=== PATIENT | female | born 1990 | race Caucasian/White ===

== ENCOUNTER 2019-01-18 01:13 | Outpatient (CLI) | payer OTHER ==
[~2019-01-18] VITALS: Ht 152.4 cm; Wt 79.5 kg
[~2019-01-18 01:13] MED LIST: PREN1TAB49 PO
[2019-01-18 01:46] VITALS: BP 127/72; PULSE 84; RESP 18
[2019-01-18] MEDS ORDERED: CALC600T24 PO (02:02)
[2019-01-18] MEDS ORDERED: FERR134T PO (02:02)
[2019-01-18] MEDS ORDERED: TERBUTALINE 1 ML ONE (02:28)
[2019-01-18] MEDS ORDERED: LACTATED RINGER'S 1,000 ML IV SCH (02:30)
[2019-01-18] MEDS ORDERED: TERBUTALINE 1 MG/ML INJ SC ONE (02:30)
[2019-01-18] MEDS ORDERED: LACTATED RINGER'S 1,000 ML IV ONE (02:30)
--- NOTE | 2019-01-18 06:26 | TRIAGE ---
OB Triage Datetime Report Generated by CPN: 01/18/2019 06:25 Datetime: 01/18/2019 05:09 Stage of : OB Triage Labor Evaluation Monitor Mode: External Quality: Mild Pattern: Normal: <= 5 Contractions in 10 Minutes Resting Tone [place]: Relaxed Heart Rate FHR Baseline Rate: 130 Monitor Mode: External US FHR Baseline Changes: No Baseline Change Variability: Moderate 6-25 bpm Accelerations: 15X15 Decelerations: None Category: Category I Datetime: 01/18/2019 04:01 Labor Evaluation Monitor Mode: External Quality: Mild Pattern: Normal: <= 5 Contractions in 10 Minutes Resting Tone [place]: Relaxed Monitor Mode: External US FHR Baseline Changes: No Baseline Change Variability: Moderate 6-25 bpm Accelerations: 15X15 Decelerations: None Category: Category I Datetime: 01/18/2019 03:11 Labor Evaluation Monitor Mode: External Quality: Mild Pattern: Normal: <= 5 Contractions in 10 Minutes Resting Tone [place]: Relaxed Heart Rate FHR Baseline Rate: 145 Monitor Mode: External US FHR Baseline Changes: No Baseline Change Variability: Moderate 6-25 bpm Accelerations: 15X15 Decelerations: None Category: Category I Pain Assessment Pain Scale: 2 Pain Presence: Intermittent Pain Type: Cramping Pain Location: Abdomen Datetime: 01/18/2019 02:49 Stage of : Antepartum Labor Evaluation Monitor Mode: External Quality: Mild Pattern: Normal: <= 5 Contractions in 10 Minutes Resting Tone [place]: Relaxed Heart Rate FHR Baseline Rate: 130 Monitor Mode: External US FHR Baseline Changes: No Baseline Change Variability: Moderate 6-25 bpm Accelerations: 15X15 Decelerations: None Category: Category I Membrane Status: Intact Datetime: 01/18/2019 02:20 Stage of : OB Triage Datetime: 01/18/2019 02:17 Stage of : OB Triage Labor Evaluation Monitor Mode: External Quality: Mild Pattern: Normal: <= 5 Contractions in 10 Minutes Resting Tone [place]: Relaxed Heart Rate FHR Baseline Rate: 130 Monitor Mode: External US FHR Baseline Changes: No Baseline Change Variability: Moderate 6-25 bpm Accelerations: 15X15 Decelerations: None Category: Category I Vaginal Exam Dilatation (cms): 1.0 Effacement (%): 60 Station: -3 Exam By: Bacilio Matamoros Membrane Status: Intact Vaginal Bleeding: None Cervix, Consistency: Moderate Cervix, Position: Midposition Datetime: 01/18/2019 01:40 Time of Arrival: 01/18/2019 01:17 EGA: 35.5 Arrived By: Wheelchair Arrived From: Home Chief Complaint: c/o vag pressure and RLQ pain beg 1100 Movement: Present Contractions: Occasional Rupture of Membranes: Denies Vaginal Bleeding: None Vaginal Discharge: Present Recent Sexual Intercouse: Denies Abdominal Trauma: Not Applicable Patient Complaints: None Time Provider Notified: 01/18/2019 02:20 Provider Notified: Dr [place] Initial Plan: EFM,UA,SVE (Annotations: Data stored by CPN on behalf of user) Datetime: 01/18/2019 01:36 Stage of : OB Triage Maternal Assessment Level of Consciousness: Fully Conscious Headache: Denies Blurred Vision: No Nausea/Vomiting: Denies RUQ Epigastric Pain: Denies Facial Edema: None Labor Evaluation Monitor Mode: External Quality: Mild Resting Tone [place]: Relaxed Heart Rate FHR Baseline Rate: 130 Monitor Mode: External US
--- NOTE | 2019-01-18 08:55 | PN ---
Triage Information Date/Time January 18, 2019 Reason for visit: Right lower quadrant pain Weeks of Gestation 35 weeks and 5 days /Para 5 para 2 Diabetes: none Hypertention: none Additional information 28-year-old G5, P2 with IUP at 35 weeks and 5 days presented with complaint of vaginal pressure and pain in the right lower quadrant and contractions. She denies any leaking of fluid, vaginal bleeding or decreased movement. Objective Vital Signs Date Temp Pulse Resp B/P (MAP) Pulse Ox O2 O2 Flow FiO2 Time Delivery Rate 01/18/19 98.2 84 18 127/72 01:46 (90) Intake and Output 01/17/19 01/17/19 01/18/19 1515:00 23:00 07:00 IntakeIntake Total 1000 ml BalanceBalance 1000 ml Heart Rate: 130's Heart Rate Comments heart rate category 1 Contractions: 6-10 Minutes Apart Exam General appearance: Alert and oriented x4 does not appear to be in any acute distress Abdomen: Soft, gravid, fundal height consider gestational age Tenderness in suprapubic area noted NST: Category 1 UA consistent with UTI VS - Last 72 Hours, by Label Date Temp Pulse Resp B/P (MAP) Pulse Ox O2 O2 Flow FiO2 Time Delivery Rate 01/18/19 98.2 84 18 127/72 01:46 (90) Laboratory Tests Test 01/18/19 01:30 01/18/19 03:00 Urine Color STRAW Urine Clarity SLIGHTLY CLOUDY A Urine pH 6.0 Urine Specific [place] 1.008 Urine Ketones TRACE A Urine Nitrite NEGATIVE Urine Bilirubin NEGATIVE Urine Urobilinogen NEGATIVE Urine Leukocyte Esterase 3+ H Urine Microscopic RBC 6 H Urine Microscopic WBC 38 H Urine Squamous Epithelial Cells MODERATE Urine Bacteria FEW A Urine Mucus FEW A Urine Hemoglobin NEGATIVE Urine Glucose NEGATIVE Urine Total Protein NEGATIVE White Blood Count 8.5 Red Blood Count 4.06 L Hemoglobin 10.9 L Hematocrit 34.3 L Mean Corpuscular Volume 84.5 Mean Corpuscular Hemoglobin 26.8 L Mean Corpuscular Hemoglobin Concent 31.8 L Red Cell Distribution Width 12.8 Platelet Count 330 Mean Platelet Volume 10.1 Immature Granulocytes % 0.200 Neutrophils % 60.4 Lymphocytes % 30.8 Monocytes % 6.5 Eosinophils % 1.5 Basophils % 0.6 Nucleated Red Blood Cells % 0.0 Immature Granulocytes # 0.020 Neutrophils # 5.1 Lymphocytes # 2.6 Monocytes # 0.6 Eosinophils # 0.1 Basophils # 0.1 Nucleated Red Blood Cells # 0.0 Sodium Level 140 Potassium Level 3.7 Chloride Level 111 H Carbon Dioxide Level 21 Anion Gap 8 Blood Urea Nitrogen 5 L Creatinine 0.42 L Est Glomerular Filtrat Rate mL/min > 60 Glucose Level 91 Calcium Level 9.4 Total Bilirubin 0.5 Direct Bilirubin 0.00 Indirect Bilirubin 0.5 Aspartate Amino Transf (AST/SGOT) 18 Alanine Aminotransferase (ALT/SGPT) 16 Alkaline Phosphatase 198 H Total Protein 6.5 Albumin 3.4 Globulin 3.10 Albumin/Globulin Ratio 1.09 Results/Medications Result Diagram: 01/18/19 0300 01/18/19 0300 Results 24 hrs Laboratory Tests Test 01/18/19 01:30 01/18/19 03:00 Urine Color STRAW Urine Clarity SLIGHTLY CLOUDY A Urine pH 6.0 Urine Specific [place] 1.008 Urine Ketones TRACE A Urine Nitrite NEGATIVE Urine Bilirubin NEGATIVE Urine Urobilinogen NEGATIVE Urine Leukocyte Esterase 3+ H Urine Microscopic RBC 6 H Urine Microscopic WBC 38 H Urine Squamous Epithelial Cells MODERATE Urine Bacteria FEW A Urine Mucus FEW A Urine Hemoglobin NEGATIVE Urine Glucose NEGATIVE Urine Total Protein NEGATIVE White Blood Count 8.5 Red Blood Count 4.06 L Hemoglobin 10.9 L Hematocrit 34.3 L Mean Corpuscular Volume 84.5 Mean Corpuscular Hemoglobin 26.8 L Mean Corpuscular Hemoglobin Concent 31.8 L Red Cell Distribution Width 12.8 Platelet Count 330 Mean Platelet Volume 10.1 Immature Granulocytes % 0.200 Neutrophils % 60.4 Lymphocytes % 30.8 Monocytes % 6.5 Eosinophils % 1.5 Basophils % 0.6 Nucleated Red Blood Cells % 0.0 Immature Granulocytes # 0.020 Neutrophils # 5.1 Lymphocytes # 2.6 Monocytes # 0.6 Eosinophils # 0.1 Basophils # 0.1 Nucleated Red Blood Cells # 0.0 Sodium Level 140 Potassium Level 3.7 Chloride Level 111 H Carbon Dioxide Level 21 Anion Gap 8 Blood Urea Nitrogen 5 L Creatinine 0.42 L Est Glomerular Filtrat Rate mL/min > 60 Glucose Level 91 Calcium Level 9.4 Total Bilirubin 0.5 Direct Bilirubin 0.00 Indirect Bilirubin 0.5 Aspartate Amino Transf (AST/SGOT) 18 Alanine Aminotransferase (ALT/SGPT) 16 Alkaline Phosphatase 198 H Total Protein 6.5 Albumin 3.4 Globulin 3.10 Albumin/Globulin Ratio 1.09 Imaging Results PROCEDURE: US OB biophysical profile. CLINICAL INDICATION: Contractions TECHNIQUE: Multiple sonographic images of the pelvis were obtained. The i mages were reviewed on a PACS workstation. COMPARISON: None. FINDINGS: Single live intrauterine gestation. GRISELDA = 8.53 cm. Cardiac activity is present with 144 beats per minute. Cephalic presentation. Placental location is anterior. No evidence of previa or abruption. Biophysical profile as follows: movement 2/2 tone 2/2 breathing 2/2 GRISELDA 2/2 Total 04/26 IMPRESSION: Biophysical profile 04/26. RPTAT: HJBB Disposition: Discharge Assessment/Plan IUP at 35 weeks and 5 days Pelvic pain and pressure No evidence of labor or PPROM UTI Symptoms resolved after hydration Patient will be discharged home with instruction to take antibiotics and adequate p.o. hydration Rx for Keflex 500 mg p.o. 4 times daily prescribed Strict labor precautions kick count follow-up with primary OB office within 48 hours after discharge from the hospital discussed with the patient Patient verbalized understanding. All questions were answered to patient's best satisfaction TODD STAFFORD MD January 18, 2019 08:55
[2019-01-19] MEDS ORDERED: CEPH250S33 PO (20:47)
== END 2019-01-18 05:30 | disposition home or self-care (01) ==
LOC: L-D 01:13 → OBT 01:13
PROVIDERS: ATTEND Obstetrics & Gynecology
DX: O23.43 Unspecified infection of urinary tract in pregnancy, third trimester (principal); Z3A.35 35 weeks gestation of pregnancy
CPT/HCPCS: 36415; 76815; 76818; 80053; 81001; 85025; 96360; 96361; 96372; J3105; J7120; Z7500; G0463

== ENCOUNTER 2019-01-19 20:17 | Outpatient (CLI) | payer OTHER ==
[~2019-01-19] VITALS: Ht 152.4 cm; Wt 79.1 kg
[~2019-01-19 20:17] MED LIST changes: +CALC600T24 PO; +FERR134T PO
[2019-01-19 20:44] VITALS: BP 119/69; PULSE 88; RESP 18
[2019-01-19] MEDS ORDERED: CEPH250S33 PO (20:47)
--- NOTE | 2019-01-19 21:36 | PN ---
Triage Information Date/Time Reason for visit: Abd/pelvic pain (Pelvic pressure) Weeks of Gestation 28-year-old 5 para 2 at 35 weeks and 6 days of gestation with estimated date of delivery February 17, 2019 Patient presents with chief complaint of pelvic pressure and uterine contractions every 3 to 7 minutes with pain level of 3 out of 10 She reports positive movement, denies any vaginal bleeding or leaking fluid She is currently taking Keflex for urinary tract infection /Para 5 para 2 Diabetes: none Hypertention: none Objective Vital Signs Date Temp Pulse Resp B/P (MAP) Pulse Ox O2 O2 Flow FiO2 Time Delivery Rate 01/19/19 98.1 88 18 119/69 Room Air 20:44 (86) Heart Rate: 140's Heart Rate Comments heart rate tracing category 1 Contractions: 6-10 Minutes Apart Exam 1 cm/60%/-3 per nurse Results/Medications Imaging Results PROCEDURE: US OB biophysical profile. CLINICAL INDICATION: decreased movements, labor TECHNIQUE: Multiple sonographic images of the pelvis were obtained. The images were reviewed on a PACS workstation. COMPARISON: No prior studies are available for comparison. FINDINGS: There is a single live intrauterine gestation. Cardiac activity is present with 141 beats per minute. There is a vertex presentation. The placenta is anterior. There is no evidence of placental abruption. GRISELDA = 13.5 cm. Biophysical profile: movement 2/2 tone 2/2. breathing 2/2 GRISELDA 2/2 Total 04/26 RPTAT: AA . IMPRESSION: Normal biophysical profile. . .Chin Razo MD, MD Date Time Electronically viewed and signed by .Chin Razo MD, MD on 01/19/2019 21:25 .S/ CC: MAGNO CANO MD [id number] Disposition: Discharge Assessment/Plan Patient counseled to increase p.o. hydration kick count instructions were given Labor precautions were given Patient is to receive betamethasone x1 dose today and return in 24 hours for second dose Patient to follow-up with her own [facility] in 1 to 2 days Copies To: CC: JEANNA FONTAINE ; MAGNO CANO MD January 19, 2019 21:34
[2019-01-19] MEDS ORDERED: BETAMET NA PHOS/AC(6 MG/ML) 2 ML INJ SYG IM ONE (22:30)
--- NOTE | 2019-01-19 23:52 | TRIAGE ---
OB Triage Datetime Report Generated by CPN: 01/19/2019 23:52 Datetime: 01/19/2019 20:52 Time of Arrival: 01/19/2019 20:14 EGA: 35.6 Arrived By: Ambulatory Arrived From: Home Chief Complaint: c/o pain in RLQ and RL back, cramping, and vag pressure Movement: Present Contractions: Irregular Rupture of Membranes: Denies Vaginal Bleeding: None Vaginal Discharge: Present Recent Sexual Intercouse: Denies Abdominal Trauma: Not Applicable Patient Complaints: Cramping; Back Pain Additional Patient Complaints: PT on Keflx for UTI since yesterday Time Provider Notified: 01/19/2019 20:30 Provider Notified: Dr Matthews Initial Plan: RENEE,JANNA,REJI,
== END 2019-01-19 22:29 | disposition home or self-care (01) ==
LOC: OBT 20:17 → L-D 20:18 → OBT 22:29
PROVIDERS: ATTEND Obstetrics & Gynecology
DX: O62.9 Abnormality of forces of labor, unspecified (principal); Z3A.35 35 weeks gestation of pregnancy
CPT/HCPCS: 76818; 96372; J0702; Z7500; G0463

== ENCOUNTER 2019-01-20 22:17 | Outpatient (CLI) | payer OTHER ==
[~2019-01-20] VITALS: Ht 152.4 cm; Wt 79.1 kg
[~2019-01-20 22:17] MED LIST changes: +CEPH250S33 PO
[2019-01-20] MEDS ORDERED: BETAMET NA PHOS/AC(6 MG/ML) 2 ML INJ SYG IM STA (22:19)
[2019-01-20 22:44] VITALS: BP 110/66; PULSE 80; RESP 18
[2019-01-20 22:51] VITALS: Ht 152.4 cm; Wt 79.1 kg
--- NOTE | 2019-01-21 01:25 | TRIAGE ---
OB Triage Datetime Report Generated by CPN: 01/21/2019 01:25 Datetime: 01/21/2019 00:10 Frequency: irregular Monitor Mode: External Duration (sec)2399: 60-80 Pattern: Normal: <= 5 Contractions in 10 Minutes FHR Baseline Rate: 130 Monitor Mode: External US Variability: Moderate 6-25 bpm Accelerations: 15X15 Decelerations: None Datetime: 01/21/2019 00:00 Frequency: irregular Monitor Mode: External Duration (sec)2399: 60-120 Pattern: Normal: <= 5 Contractions in 10 Minutes FHR Baseline Rate: 130 Monitor Mode: External US Variability: Moderate 6-25 bpm Accelerations: 15X15 Decelerations: None Category: Category I Datetime: 01/20/2019 23:00 Frequency: IRREGULAR Monitor Mode: External Duration (sec)2399: 60-120 Pattern: Normal: <= 5 Contractions in 10 Minutes FHR Baseline Rate: 130 Monitor Mode: External US Variability: Moderate 6-25 bpm Accelerations: 15X15 Decelerations: None Category: Category I Datetime: 01/20/2019 22:36 Time of Arrival: 01/20/2019 22:10 EGA: 36.0 Arrived By: Ambulatory Arrived From: Home Chief Complaint: 2nd dose of betamethasone Movement: Decreased Contractions: Denies/Absent Rupture of Membranes: Denies Vaginal Bleeding: None Vaginal Discharge: Present Recent Sexual Intercouse: Denies Abdominal Trauma: Not Applicable Patient Complaints: Other Additional Patient Complaints: DFM Time Provider Notified: 01/20/2019 22:46 Provider Notified: HADADIAN Initial Plan: cefm, BPP Datetime: 01/20/2019 22:35 Stage of : OB Triage Assessment Type: Triage Level of Consciousness: Fully Conscious DTR's/Clonus: DTRs 2+; No Clonus Headache: Denies Blurred Vision: No Respiratory Effort: Unlabored; Regular Rhythm; Equal Expansion Breath Sounds, Left: Clear and Equal Breath Sounds, Right: Clear and Equal Nausea/Vomiting: Denies RUQ Epigastric Pain: Denies Lower Extremities Edema: None Degree: None Upper Extremities Edema: None Degree: None Facial Edema: None Temperature Route: Oral History of Falling: (0) No Secondary Diagnosis: (0) No Ambulatory Aid: (0) Bedrest/Nurse Assist IV Therapy: (0) No Gait: (0) Normal/Bedrest/Immobile Mental Status: (0) Oriented to Own Ability Fall Score: 0 Fall Risk Score Definition: No Risk: No action required Monitor Mode: External US Comments: MONITOR APPLIED. AUDIBLE FHT Pain Scale: 5 Pain Presence: Intermittent Pain Type: Ache Pain Location: Back Pain Goal: 0 Pain Relief Measures: Comfort Measures Datetime: 01/19/2019 21:10 Stage of : OB Triage Datetime: 01/19/2019 21:01 FHR Baseline Rate: 140 Monitor Mode: External US FHR Baseline Changes: No Baseline Change Variability: Moderate 6-25 bpm Accelerations: 15X15 Decelerations: None Category: Category I Datetime: 01/19/2019 20:57 Stage of : OB Triage Frequency: 5-7 Monitor Mode: External Quality: Mild Pattern: Normal: <= 5 Contractions in 10 Minutes Resting Tone [place]: Relaxed FHR Baseline Rate: 140 FHR Baseline Changes: No Baseline Change Variability: Moderate 6-25 bpm Accelerations: 15X15 Decelerations: None Category: Category I Dilatation (cms): 1.0 Effacement (%): 50 Station: -4 Exam By: ELope Membrane Status: Intact Vaginal Bleeding: None Cervix, Consistency: Moderate Cervix, Position: Posterior Presentation 'A': Cephalic Datetime: 01/19/2019 20:52 EGA: 35.6 Datetime: 01/19/2019 20:23 Stage of : OB Triage Level of Consciousness: Fully Conscious Headache: Denies Blurred Vision: No Respiratory Effort: Unlabored Nausea/Vomiting: Denies RUQ Epigastric Pain: Denies Facial Edema: None Monitor Mode: External Resting Tone [place]: Relaxed FHR Baseline Rate: 150 Monitor Mode: External US Pain Scale: 3 Pain Presence: Intermittent Pain Type: Stabbing; Pressure; Ache Pain Location: Abdomen; Back; Perineum
--- NOTE | 2019-01-21 06:42 | PN ---
Triage Information Date/Time January Reason for visit: Weeks of Gestation 36 weeks /Para 5 para 2 Diabetes: none Hypertention: none Additional information 28-year-old G5, P2 with IUP at 36 weeks presented with complaint of decreased movement. Patient also here to receive the second dose of steroids. She was here yesterday and received the first dose of steroid. She denies any leaking of fluid vaginal bleeding or contractions. Denies any comp occasions during course. Objective Vital Signs Date Temp Pulse Resp B/P (MAP) Pulse Ox O2 O2 Flow FiO2 Time Delivery Rate 01/20/19 98.2 80 18 110/66 Room Air 22:44 (81) Heart Rate: 130's Heart Rate Comments Category 1 Contractions: None Exam General appearance: Alert and oriented x4 does not appear to be in any acute distress Abdomen: Soft, gravid, fundal height consider gestational age NST: Category 1 BPP: 8 GRISELDA: 15.5 cm Results/Medications Imaging Results PROCEDURE: US OB biophysical profile. CLINICAL INDICATION: decreased movements, TECHNIQUE: Multiple sonographic images of the pelvis were obtained. The images were reviewed on a PACS workstation. COMPARISON: US PELVIS 01/19/2019 FINDINGS: There is a single live intrauterine gestation. Cardiac activity is present with 132 beats per minute. There is a vertex presentation. The placenta is anterior. There is no evidence of placental abruption. GRISELDA = 15.5 cm. Biophysical profile: movement 2/2 tone 2/2. breathing 2/2 GRISELDA 2/2 Total 04/26 RPTAT: AA . IMPRESSION: Normal biophysical profile Disposition: Discharge Assessment/Plan IUP at 36 weeks Decreased movement testing reassuring. Patient had been feeling movement when she received hydration in triage Status post second dose of steroid. No evidence of labor or PPROM Patient will be discharged home in stable condition. labor precautions kick count and follow-up with primary OB office within 48 hours after discharge from the hospital discussed with the patient Patient verbalized understanding. All questions answered to patient's best satisfaction. TODD STAFFORD MD January 21, 2019 06:42
== END 2019-01-21 00:57 | disposition home or self-care (01) ==
LOC: L-D 22:17 → OBT 22:17
PROVIDERS: ATTEND Obstetrics & Gynecology
DX: O36.8130 Decreased fetal movements, third trimester, not applicable or unspecified (principal); Z3A.36 36 weeks gestation of pregnancy
CPT/HCPCS: 76818; 96372; J0702; Z7500; G0463

== ENCOUNTER 2019-01-27 23:27 | Inpatient (IN) | payer OTHER ==
[~2019-01-27] VITALS: Ht 152.4 cm; Wt 82.2 kg
[2019-01-27 23:36] VITALS: BP 126/79; PULSE 81; RESP 19; Ht 152.4 cm; Wt 82.2 kg
[2019-01-28] MEDS ORDERED: CEFTRIAXONE 1 GM/50 ML (PMX) 50 ML IVPB ONE (04:00)
[2019-01-28] MEDS ORDERED: SOD CHLORIDE 0.9% 1,000 ML IV SCH (04:00)
[2019-01-28] MEDS ORDERED: LACTATED RINGER'S 1,000 ML IV PRN (05:35)
[2019-01-28] MEDS ORDERED: MINERAL OIL LIGHT 10 ML VIAL TOP PRN (06:00)
[2019-01-28] MEDS ORDERED: OXYTOCIN 30 UNITS/LR 500 ML IV PRN (06:00)
[2019-01-28] MEDS ORDERED: LIDOCAINE 1% (MPF) 30 ML INJ INJ PRN (06:00)
[2019-01-28] MEDS ORDERED: BUTORPHANOL 2 MG INJ IV PRN ×2 (06:00)
[2019-01-28] MEDS ORDERED: OXYTOCIN 30 UNITS/LR 500 ML IV SCH (06:00)
[2019-01-28] MEDS ORDERED: MISOPROSTOL 200 MCG TAB PR PRN (06:00)
[2019-01-28] MEDS ORDERED: CARBOPROST 250 MCG INJ IM PRN (06:00)
[2019-01-28] MEDS ORDERED: METHYLERGONOVINE 0.2 MG INJ IM PRN (06:00)
[2019-01-28] MEDS: LACTATED RINGER'S 1,000 ML IV SCH ×2 (06:47→13:30)
--- NOTE | 2019-01-28 07:12 | TRIAGE ---
OB Triage Datetime Report Generated by CPN: 01/28/2019 07:11 Datetime: 01/28/2019 06:57 Labor Evaluation Frequency: 2-5 Monitor Mode: External Duration (sec)2399: 60-90 Quality: Moderate Pattern: Normal: <= 5 Contractions in 10 Minutes Resting Tone [place]: Relaxed Heart Rate FHR Baseline Rate: 130 Monitor Mode: External US Variability: Minimal - Undetectable to <=5 bpm Accelerations: 15X15 Decelerations: None Category: Category I Datetime: 01/28/2019 06:40 Assessment Type: Ongoing Assessment Maternal Assessment Level of Consciousness: Fully Conscious DTR's/Clonus: DTRs 2+; No Clonus Headache: Denies Blurred Vision: No Respiratory Effort: Unlabored; Regular Rhythm; Equal Expansion Breath Sounds, Left: Clear and Equal Breath Sounds, Right: Clear and Equal Nausea/Vomiting: Denies RUQ Epigastric Pain: Denies Lower Extremities Edema: None Upper Extremities Edema: None Degree: None Facial Edema: None Fall Risk Assessment History of Falling: (0) No Secondary Diagnosis: (0) No Ambulatory Aid: (0) Bedrest/Nurse Assist IV Therapy: (20) Yes Gait: (0) Normal/Bedrest/Immobile Mental Status: (0) Oriented to Own Ability Fall Score: 20 Fall Risk Score Definition: No Risk: No action required Datetime: 01/28/2019 06:33 Stage of : Labor Assessment Type: Admission Assessment Vaginal Bleeding: None Maternal Assessment Level of Consciousness: Fully Conscious DTR's/Clonus: DTRs 2+; No Clonus Headache: Denies Blurred Vision: No Respiratory Effort: Unlabored; Regular Rhythm; Equal Expansion Breath Sounds, Left: Clear and Equal Breath Sounds, Right: Clear and Equal Nausea/Vomiting: Denies RUQ Epigastric Pain: Denies Lower Extremities Edema: None Upper Extremities Edema: None Degree: None Facial Edema: None Fall Risk Assessment History of Falling: (0) No Secondary Diagnosis: (0) No Ambulatory Aid: (0) Bedrest/Nurse Assist IV Therapy: (20) Yes Gait: (0) Normal/Bedrest/Immobile Mental Status: (0) Oriented to Own Ability Fall Score: 20 Fall Risk Score Definition: No Risk: No action required Labor Evaluation Frequency: 3-5 Duration (sec)2399: 50-70 Quality: Moderate Pattern: Normal: <= 5 Contractions in 10 Minutes Resting Tone [place]: Relaxed Heart Rate FHR Baseline Rate: 135 Variability: Minimal - Undetectable to <=5 bpm Accelerations: 15X15 Decelerations: None Category: Category I Pain Assessment Pain Scale: 6 Pain Presence: Intermittent Pain Type: Contraction Pain Location: Abdomen Pain Goal: 2 Vaginal Exam Dilatation (cms): 0.5 Effacement (%): 30 Station: -3 Membrane Status: Intact Datetime: 01/28/2019 06:10 Comments: monitor off, pt up to BR and then transferred to L_D ambulatory accompanied by Juanis Camargo RN Datetime: 01/28/2019 06:05 Labor Evaluation Frequency: 2-7 Monitor Mode: External Duration (sec)2399: 50-100 Quality: Mild Resting Tone [place]: Relaxed Heart Rate FHR Baseline Rate: 130 Monitor Mode: External US Variability: Moderate 6-25 bpm Accelerations: 15X15 Decelerations: None Category: Category I Pain Assessment Pain Scale: 6 Pain Presence: Intermittent Pain Type: Contraction Pain Location: Abdomen; Back Pain Relief Measures: Comfort Measures Datetime: 01/28/2019 05:06 Pain Assessment Pain Scale: 6 Pain Presence: Intermittent Pain Type: Contraction Pain Location: Abdomen Pain Relief Measures: Comfort Measures Datetime: 01/28/2019 05:05 Labor Evaluation Frequency: 2-8.5 Monitor Mode: External Duration (sec)2399: 50-100 Quality: Mild Resting Tone [place]: Relaxed Heart Rate FHR Baseline Rate: 130 Monitor Mode: External US Variability: Moderate 6-25 bpm Accelerations: 15X15 Decelerations: None Category: Category I Datetime: 01/28/2019 04:00 Labor Evaluation Frequency: 3-7 Monitor Mode: External Duration (sec)2399: 50-80 Quality: Mild Resting Tone [place]: Relaxed Heart Rate FHR Baseline Rate: 135 Monitor Mode: External US Variability: Moderate 6-25 bpm Accelerations: 15X15 Decelerations: None Category: Category I Datetime: 01/28/2019 03:41 Vaginal Exam Dilatation (cms): 0.5 Effacement (%): 30 Station: -3 Exam By: CHELSI RN Cervix, Consistency: Soft Datetime: 01/28/2019 03:00 Labor Evaluation Frequency: 3-5 Monitor Mode: External Duration (sec)2399: 50-90 Quality: Moderate Resting Tone [place]: Relaxed Heart Rate FHR Baseline Rate: 135 Monitor Mode: External US Variability: Moderate 6-25 bpm Accelerations: 15X15 Decelerations: None Category: Category I Pain Assessment Pain Scale: 6 Pain Presence: Intermittent Pain Type: Contraction Pain Location: Abdomen Pain Relief Measures: Comfort Measures Datetime: 01/28/2019 02:57 Monitor Mode: External Monitor Mode: External US Datetime: 01/28/2019 02:00 Labor Evaluation Frequency: 3-7 Monitor Mode: External Duration (sec)2399: 50-90 Quality: Mild Resting Tone [place]: Relaxed Heart Rate FHR Baseline Rate: 140 Monitor Mode: External US Variability: Moderate 6-25 bpm Accelerations: 15X15 Decelerations: None Category: Category I Datetime: 01/28/2019 01:34 Comments: monitors temporarily off, information technology technician at bedside performing ultrasound exams Datetime: 01/28/2019 01:00 Labor Evaluation Frequency: 2-7 Monitor Mode: External Duration (sec)2399: 40-80 Quality: Mild Pattern: Normal: <= 5 Contractions in 10 Minutes Resting Tone [place]: Relaxed Heart Rate FHR Baseline Rate: 135 Monitor Mode: External US Variability: Moderate 6-25 bpm Accelerations: 15X15 Decelerations: None Category: Category I Datetime: 01/28/2019 00:07 Vaginal Exam Dilatation (cms): 0.5 Effacement (%): 30 Station: -3 Exam By: CHELSI CHARLES Membrane Status: Intact Vaginal Bleeding: None Cervix, Consistency: Soft Cervix, Position: Midposition Presentation 'A': Unable to Assess Datetime: 01/28/2019 00:00 Labor Evaluation Frequency: 4-7 Monitor Mode: External Duration (sec)2399: 60-80 Quality: Mild Resting Tone [place]: Relaxed Heart Rate FHR Baseline Rate: 135 Monitor Mode: External US Variability: Moderate 6-25 bpm Accelerations: 15X15 Decelerations: None Category: Category I Datetime: 01/27/2019 23:54 Time of Arrival: 01/27/2019 23:15 EGA: 37.0 Arrived By: Ambulatory Arrived From: Home Chief Complaint: Dizziness w/nausea, DFM since around 1700 Movement: Decreased Contractions: Irregular Rupture of Membranes: Denies Vaginal Bleeding: None Vaginal Discharge: Denies Recent Sexual Intercouse: Denies Abdominal Trauma: Not Applicable Patient Complaints: Contractions; Nausea; Dizziness Additional Patient Complaints: UC's on and off since 3 days ago; RUQ and right side abdomen pain Pt just completed week course of Keflex for UTI 2 days ago Initial Plan: VS, EFM, call OB PIH labs, BPP w/GRISELDA, EFW, US abdomen (for liver), UA, Rocephin 1gm Datetime: 01/27/2019 23:36 Assessment Type: Triage Maternal Assessment Level of Consciousness: Fully Conscious DTR's/Clonus: DTRs 2+; No Clonus Headache: Denies Blurred Vision: No Respiratory Effort: Unlabored; Regular Rhythm; Equal Expansion Breath Sounds, Left: Clear and Equal Breath Sounds, Right: Clear and Equal Nausea/Vomiting: Denies RUQ Epigastric Pain: Denies Lower Extremities Edema: None Degree: None Upper Extremities Edema: None Degree: None Facial Edema: None Temperature Route: Oral Fall Risk Assessment History of Falling: (0) No Secondary Diagnosis: (0) No Ambulatory Aid: (0) Bedrest/Nurse Assist IV Therapy: (0) No Gait: (0) Normal/Bedrest/Immobile Mental Status: (0) Oriented to Own Ability Fall Score: 0 Fall Risk Score Definition: No Risk: No action required Pain Assessment Pain Scale: 6 Pain Presence: Intermittent Pain Type: Contraction; Pressure Pain Location: Abdomen Pain Relief Measures: Comfort Measures Datetime: 01/27/2019 23:34 Monitor Mode: External Monitor Mode: External US Datetime: 01/27/2019 23:32 Stage of : OB Triage Comments: monitor on, pt in LR 7 Datetime: 01/20/2019 22:36 EGA: 36.0 Datetime: 01/20/2019 22:35 Fall Score: 0 Fall Risk Score Definition: No Risk: No action required Datetime: 01/19/2019 20:52 EGA: 35.6 Datetime: 01/18/2019 01:40 EGA: 35.5
[2019-01-28] MEDS ORDERED: MISOPROSTOL 50 MCG CAPSULE PO ONE (11:30)
--- NOTE | 2019-01-28 11:38 | HP ---
Date/Time of Note Date/Time of Note DATE: 01/28/19 TIME: 11:35 OB - History Hx of Present Free Text/Dictation 28-year-old 5 para 2 at 37 weeks and 1 day of gestation with estimated date of delivery February 17, 2019 Patient presents with chief complaint of dizziness and decreased movement and abdominal pain She denies any vaginal bleeding or leaking fluid Estimated Due Date: Feb 17, 2019 : 5 Para: 2 Care: Good Care Past Family/Social History * Past Medical, Surgical, Family and Obstetric Histories reviewed from chart. OB Admission Exam Vital Signs Vital Signs Vital Signs Date Temp Pulse Resp B/P (MAP) Pulse Ox O2 O2 Flow FiO2 Time Delivery Rate 01/27/19 98.3 81 19 126/79 Room Air 23:36 (95) Physical Exam HEENT: WNL Heart: Rhythm Normal Lungs: Clear, Equal Abdomen: WNL Extremities: Normal Reflexes: Normal Cervical Dilatation: Fingertip Effacement: 25% Station: -3 Membranes: Intact Heart Rate: 140's Accelerations: Accelerations Present Decelerations: No Decelerations Varibility: Moderate Contractions on Admission: < 5 Minutes Apart Intensity: Moderate Last 72 hours Lab Results CBC & BMP 01/28/19 01:07 Liver Function Test 01/28/19 01:07 Alanine Aminotransferase (ALT/SGPT) 16 Albumin 3.0 L Alkaline Phosphatase 180 H Aspartate Amino Transf (AST/SGOT) 15 Direct Bilirubin 0.00 Total Protein 6.1 Urine Results - 72 Hrs Test 01/27/19 23:18 Urine Color L YELLOW (YELLOW) Urine Clarity CLOUDY (CLEAR) A Urine pH 6.0 (5.0-9.0) Urine Specific [place] 1.002 (1.003-1.030) Urine Ketones NEGATIVE mg/dL (NEGATIVE) Urine Nitrite NEGATIVE mg/dL (NEGATIVE) Urine Bilirubin NEGATIVE mg/dL (NEGATIVE) Urine Urobilinogen NEGATIVE mg/dL (NEGATIVE) Urine Leukocyte Esterase 3+ Mckenna/ul (NEGATIVE) H Urine Microscopic RBC 34 /HPF (0-5) H Urine Microscopic WBC 40 /HPF (0-5) H Urine Amorphous Crystals FEW /HPF (NONE SEEN) A Urine Bacteria FEW /HPF (NONE SEEN) A Urine Hemoglobin 1+ mg/dL (NEGATIVE) H Urine Glucose NEGATIVE mg/dL (NEGATIVE) Urine Total Protein NEGATIVE mg/dl (NEGATIVE) PROCEDURE: ULTRASOUND OBSTETRICAL CLINICAL INDICATION: 28-year-old female with contractions and hypertension. TECHNIQUE: Multiple sonographic images of the pelvis were obtained. The images were reviewed on a PACS workstation. COMPARISON: Ultrasound biophysical profile obtained concurrently. FINDINGS: The cervix is not well visualized. There is a single viable intrauterine gestation. Cardiac activity is present with 136 beats per minute. There is a vertex presentation. Measurements were made in order to determine age. The results are as follows: BPD = 9.08 cm, HC = 32.78 cm, AC = 32.88 cm, FL = 7.10 cm. This yields and e stimated gestational age of approximately 36 weeks 6 days. The estimated date of delivery is February 19, 2019. The EFW = 3022 +/- 453 g (6 lb 11 oz). The GP is 46%. The placenta is anterior grade II. There is no evidence for an abruption or placenta previa. IMPRESSION: 1. Single viable intrauterine gestation of approximately 36 week 6 days with vertex presentation. 2. The estimated weight is 3022 +/- 453 g (6 lb 11 oz). The GP is 46%. .Nathaniel Rayo MD, MD Date Time Electronically viewed and signed by .Nathaniel Rayo MD, on 01/28/2019 02:51 .M/ CC: MAGNO CANO MD [id number] PROCEDURE: ULTRASOUND BIOPHYSICAL PROFILE CLINICAL INDICATION: 28-year-old female with contractions for viability. TECHNIQUE: Multiple sonographic images were obtained in order to perform a biophysical profile The images were reviewed on a PACS workstation. COMPARISON: Ultrasound OB obtained concurrently; ultrasound biophysical profile January 20, 2019. FINDINGS: There is a single viable intrauterine gestation. There is a vertex presentation. Cardiac activity is present at 135 beats per minute. The placenta is anterior grade II. The results of the biophysical profile are as follows: breathing movement = 2/2 Gross body movement = 2/2 tone = 2/2 Qualitative amniotic fluid volume = 2/2 Amniotic fluid index equals 13.7 cm. The maximal vertical pocket is 5.3 cm. This yields a biophysical profile score of 8/8. IMPRESSION: Biophysical profile score is 8/8. .Nathaniel Rayo MD, MD Date Time Electronically viewed and signed by .Nathaniel Rayo MD, MD on 01/28/2019 02:48 .M/ CC: MAGNO CANO MD [id number] PROCEDURE: ULTRASOUND LIMITED ABDOMEN CLINICAL INDICATION: 28-year-old female with abdominal pain. TECHNIQUE: Multiple sonographic of the right upper quadrant of the abdomen were obtained. The images were reviewed on a PACS workstation. COMPARISON: None. FINDINGS: The pancreas is not well visualized secondary to overlying bowel gas. The liver displays normal echogenicity. The liver measures 16.1 cm in length. No evidence of intrahepatic biliary ductal dilatation is seen. The portal and hepatic veins are unremarkable. The gallbladder contains mild layering echogenic sludge. There is no evidence for shadowing stones. The gallbladder wall thickness is within normal limits measuring 2.7 mm No pericholecystic fluid is seen. The common bile duct measures 4.2 mm and is not dilated. The right kidney displays normal echogenicity. The right kidney measures 10.2 cm in maximal length. There is mild right-sided hydronephrosis. No free fluid is seen. IMPRESSION: 1. Minimal gallbladder sludge. 2. Mild right-sided hydronephrosis. .Nathaniel Rayo MD, MD Date Time Electronically viewed and signed by .Nathaniel Rayo MD, MD on 01/28/2019 02:41 .M/ CC: MAGNO CANO MD [id number] OB Assessment/Plan Reason for admission: active labor (Early labor) Plan: Expectant Management Other plan: Admit to labor and delivery Antibiotics for urinary tract infection Urine culture sent Expectant management Copies To: CC: JEANNA FONTAINE ; MAGNO CANO MD January 28, 2019 11:38
--- NOTE | 2019-01-28 12:44 | PREAC ---
Date/Time of Note Date/Time of Note DATE: 01/28/19 TIME: 12:42 Anesthesia Eval and Record Evaluation Time Pre-Procedure Interview DATE: 01/28/19 TIME: 12:42 Age 28 Sex female NPO: 8 hrs Preoperative diagnosis intrauterine Planned procedure labor epidural Past Medical History Past Medical History: Includes : : (5), Para: (2), Gestational age: (37.1) Surgery & Anesthesia Issues No known issue Meds Anticoagulation: No Beta Rayray within 24 hr: No Reason Beta Rayray not given: Pt. not on B-Rayray Reported Medications Vits W-Ca,Fe,Fa(<1MG) () 1 Tab Tablet, 1 TAB PO DAILY 06/22/12 Discontinued Reported Medications Cephalexin* (Cephalexin* Susp) 250 Mg/5 Ml Susp.recon, 500 MG PO Q6, #1 BOTTLE 01/19/19 Ferrous Sulfate (Iron) 134 Mg Tablet, 134 MG PO DAILY, TAB 01/18/19 Calcium Carbonate* (Calcium Carbonate*) 600 MG Ca Tab, 600 MG PO DAILY, TAB 01/18/19 Current Medications Sodium Chloride 1,000 ml @ 125 mls/hr Q8H IV Last administered on 01/28/19at 04:12; Admin Dose 125 MLS/HR; Start 01/28/19 at 04:00 Lactated Ringer's 1,000 ml @ 125 mls/hr Q8H IV Last administered on 01/28/19at 06:47; Admin Dose 125 MLS/HR; Start 01/28/19 at 05:35 Butorphanol Tartrate (Stadol) 1 mg Q2H PRN IV .PAIN SCALE 1-5; Start 01/28/19 at 06:00 Butorphanol Tartrate (Stadol) 2 mg Q2H PRN IV .PAIN SCALE 6-10; Start 01/28/19 at 06:00 Lidocaine (Xylocaine 1% (Mpf)) 30 ml ONCE PRN INJ .EPISIOTOMY; Start 01/28/19 at 06:00 Oxytocin/Lactated Ringer's 500 ml @ 500 mls/hr ONCE POST IV ; Start 01/28/19 at 06:00 Oxytocin/Lactated Ringer's 500 ml @ 125 mls/hr POST IV ; Start 01/28/19 at 06:00 Lactated Ringer's 1,000 ml @ 2,000 mls/hr Q30M PRN IV .ANESTHESIA Last administered on 01/28/19at 12:37; Admin Dose 2,000 MLS/HR; Start 01/28/19 at 05:35 Oxytocin/Lactated Ringer's 500 ml @ 0 mls/hr ONCE PRN IV .VAGINAL BLEEDING; Start 01/28/19 at 06:00 Methylergonovine Maleate (Methergine) 0.2 mg ONCE PRN IM .VAGINAL BLEEDING; Start 01/28/19 at 06:00 Carboprost Tromethamine (Hemabate) 250 mcg ONCE PRN IM .VAGINAL BLEEDING; Start 01/28/19 at 06:00 Misoprostol (Cytotec) 1,000 mcg ONCE PRN WI .VAGINAL BLEEDING; Start 01/28/19 at 06:00 Ceftriaxone Sodium 50 ml @ 100 mls/hr Q24H IVPB ; Start 01/29/19 at 04:00 Mineral Oil (Muri-Lube) 10 ml PRN PRN TOP delivery lubrication; Start 01/28/19 at 06:00 Meds reviewed: Yes Allergies Coded Allergies: latex (Verified Allergy, Mild, rash, 01/19/19) naproxen (Verified Allergy, Mild, SWOLLEN MOUTH, 01/18/19) amoxicillin (Verified Allergy, Unknown, sob, rash, 01/27/19) ibuprofen (Verified Allergy, Unknown, sob, rash, 01/27/19) Uncoded Allergies: ANY GEL PILLS (Allergy, Mild, RASH, 05/07/12) Allergies Reviewed: Yes Labs/Studies Labs Reviewed: Reviewed by anesthesiologist Result Diagram: 01/28/1910601/28/19106 Laboratory Tests 01/28/19 01:07 Blood Bank Test 01/28/19 04:12 Antibody Screen NEGATIVE Blood Type O POSITIVE Rh Immune Globulin Candidate NO test: N/A Pre-procedure Exam Last vitals Vital Signs Date Temp Pulse Resp B/P (MAP) Pulse Ox O2 O2 Flow FiO2 Time Delivery Rate 01/27/19 98.3 81 19 126/79 Room Air 23:36 (95) Airway: Adequate mouth opening, Adequate thyromental dist Mallampati: Mallampati II Teeth: Normal Lung: Normal Heart: Normal ASA Physical Status ASA physical status: 2 Emergency: None Planned Anesthetic Neuraxial: Epidural Planned Pain Management Parenteral pain med Pre-operative Attestations Prior to commencing anesthesia and surgery, the patient was re-evaluated, there was verification of: *The patient's identity *The results of appropriate recent lab work and preoperative vital signs *The above evaluation not changing prior to induction *Anesthetic plan, risk benefits, alternative and complications discussed with patient/family; questions answered; patient/family understands, accepts and wishes to proceed. JERONMIO RICHEY MD January 28, 2019 12:44
[2019-01-28] MEDS ORDERED: NALOXONE (0.4 MG/ML) INJ IV PRN (13:00)
[2019-01-28] MEDS ORDERED: FENTAnyl 2MCG/ML-ROPIV 0.2% 100 ML BAG EPI SCH (13:00)
[2019-01-28] MEDS ORDERED: DIPHENHYDRAMINE 50 MG INJ IV PRN (13:00)
[2019-01-28] MEDS ORDERED: ONDANSETRON 4 MG INJ IV PRN (13:00)
--- NOTE | 2019-01-28 13:56 | PAC ---
Date/Time of Note Date/Time of Note DATE: 01/28/19 TIME: 13:55 Post-Anesthesia Notes Post-Anesthesia Note Last documented vital signs Vital Signs Date Temp Pulse Resp B/P (MAP) Pulse Ox O2 O2 Flow FiO2 Time Delivery Rate 01/27/19 98.3 81 19 126/79 Room Air 23:36 (95) Activity: WNL Respiratory function: WNL Cardiovascular function: WNL Mental status: Baseline Pain reasonably controlled: Yes Hydration appropriate: Yes Nausea/Vomiting absent: Yes Comments BP: 137/78 HR: 83 RR: 16 T: 98 Sao2: 99% JERONIMO RICHEY MD January 28, 2019 13:56
--- NOTE | 2019-01-28 16:30 | QN ---
Documentation Comment called for evaluation of status of labor VE 3-4/70/-3 bulging bag ARM done clear fluid in mod amount ROSITA MENDEZ MD January 28, 2019 16:30
[2019-01-28] MEDS: OXYTOCIN 30 UNITS/LR 500 ML IV SCH (18:59)
--- NOTE | 2019-01-28 19:04 | LDN ---
Date/Time of Note Date/Time of Note DATE: 01/28/19 TIME: 19:01 Delivery Summary of normal female Weeks of Gestation 37w2d Placenta Delivered: Spontaneously Meconium: none Episiotomy: No Perineal laceration: 0 Anesthesia type: Epidural Estimated blood loss: 200 Sponge & Needle done & correct: Yes All needle counts correct: Yes Any foreign bodies felt in the: No Delivery Information Sex Infant Sex: female Apgars 1 Minute: 8 5 Minute: 9 Suctioning Nose & mouth suctioned at bren[place]: Yes Delee suction performed: Yes Umbilical Cord Umbilical cord with: 3 Vessels Cord presentations: no nuchal cord Cord Blood was obtained: Yes Mother & Baby Disposition Disposition Mom & Baby to Maternity; Good: Yes Mom transferred to: Other Baby to NICU: No () ROSITA MENDEZ MD January 28, 2019 19:04
[2019-01-28] MEDS: ACETAMINOPHEN 325 MG TAB PO PRN (20:25)
[2019-01-28 21:00] VITALS: BP 146/81; PULSE 86; RESP 16
[2019-01-29] VITALS: BP 126/60; PULSE 72; RESP 18
[2019-01-29] MEDS ORDERED: OXYCODONE/ASPIRIN (4.88/325) TAB PO PRN ×2
[2019-01-29] MEDS ORDERED: BENZOCAINE 20% 56 ML SPRAY TOP PRN
[2019-01-29] MEDS ORDERED: LANOLIN HPA 1 PKT TOP PRN
[2019-01-29] MEDS ORDERED: OXYTOCIN 30 UNITS/LR 500 ML IV PRN
[2019-01-29] MEDS ORDERED: CARBOPROST 250 MCG INJ IM PRN
[2019-01-29] MEDS ORDERED: METHYLERGONOVINE 0.2 MG INJ IM PRN
[2019-01-29] MEDS ORDERED: MISOPROSTOL 200 MCG TAB PR PRN
[2019-01-29] MEDS ORDERED: IBUPROFEN 600 MG TAB PO SCH
[2019-01-29] MEDS ORDERED: ZOLPIDEM 5 MG TAB PO PRN
[2019-01-29] MEDS ORDERED: WITCH HAZEL/GLYCERIN PAD PR PRN
[2019-01-29] MEDS: OXYTOCIN 30 UNITS/LR 500 ML IV SCH (00:21)
[2019-01-29] MEDS: ACETAMINOPHEN 325 MG TAB PO PRN (00:52)
[2019-01-29 04:00] VITALS: BP 116/72; PULSE 60; RESP 20
[2019-01-29] MEDS ORDERED: CEFTRIAXONE 1 GM/50 ML (PMX) 50 ML IVPB SCH (04:00)
[2019-01-29] MEDS ORDERED: HYDROCODONE/APAP (5/325) TAB PO PRN (08:30)
[2019-01-29] MEDS: SENNA/DOCUSATE NA (8.6MG/50MG) TAB PO SCH ×2 (08:40→20:26)
[2019-01-29] MEDS: HYDROCODONE/APAP (5/325) TAB PO PRN ×3 (08:41→20:27)
[2019-01-29 09:53] VITALS: BP 131/79; PULSE 73; RESP 20
[2019-01-29 12:35] VITALS: BP 104/57; PULSE 68; RESP 22
--- NOTE | 2019-01-29 15:50 | QN ---
Documentation Comment day #1 Status post Patient stable and afebrile Vital signs stable VS - Last 72 Hours, by Label Date Temp Pulse Resp B/P (MAP) Pulse Ox O2 O2 Flow FiO2 Time Delivery Rate 01/29/19 68 22 104/57 Room Air 12:35 (73) 01/29/19 98.0 73 20 131/79 98 Room Air 09:53 (96) 01/29/19 98.4 60 20 116/72 Room Air 04:00 (87) 01/29/19 98.9 72 18 126/60 Room Air 00:00 (82) 01/28/19 99.7 86 16 146/81 Room Air 21:00 (102) 01/27/19 98.3 81 19 126/79 Room Air 23:36 (95) Hematology - 72 Hrs Test 01/28/19 01:07 01/29/19 07:21 Hematocrit 32.0 % (37.0-47.0) L 29.4 % (37.0-47.0) L Hemoglobin 10.0 g/dl (12.0-16.0) L 9.1 g/dl (12.0-16.0) L Mean Corpuscular 26.2 pg (29.0-33.0) L 26.4 pg (29.0-33.0) L Hemoglobin Mean Corpuscular 31.3 g/dl (32.0-37.0) L 31.0 g/dl (32.0-37.0) L Hemoglobin Concent Mean Corpuscular Volume 84.0 fl (82.0-101.0) 85.2 fl (82.0-101.0) Mean Platelet Volume 10.2 fl (7.4-10.4) 10.7 fl (7.4-10.4) H Platelet Count 284 10^3/UL (140-415) 258 10^3/UL (140-415) Red Blood Count 3.81 10^6/ul (4.20-5.40) 3.45 10^6/ul (4.20-5.40) L L Red Cell Distribution 13.1 % (11.5-14.5) 13.5 % (11.5-14.5) Width White Blood Count 8.6 10^3/ul (4.8-10.8) 13.1 10^3/ul (4.8-10.8) #H Chemistry Test 01/28/19 01:07 Sodium Level 139 mmol/L (135-144) Potassium Level 3.9 mmol/L (3.5-5.1) Chloride Level 110 mmol/L (97-110) Carbon Dioxide Level 23 mmol/L (21-31) Anion Gap 6 (5-13) Blood Urea Nitrogen 6 mg/dl (7-20) L Creatinine 0.52 mg/dl (0.44-1.00) Est Glomerular Filtrat Rate mL/min > 60 mL/min (>60) Glucose Level 93 mg/dl (70-220) Uric Acid 4.4 mg/dl (3.1-7.9) Calcium Level 9.0 mg/dl (8.4-10.2) Total Bilirubin 0.4 mg/dl (0.2-1.3) Direct Bilirubin 0.00 mg/dl (0.00-0.20) Indirect Bilirubin 0.4 mg/dl (0-1.1) Aspartate Amino Transf (AST/SGOT) 15 IU/L (15-46) Alanine Aminotransferase (ALT/SGPT) 16 IU/L (13-69) Alkaline Phosphatase 180 IU/L (42-121) H Total Protein 6.1 g/dl (6.1-8.1) Albumin 3.0 g/dl (3.3-4.9) L Globulin 3.10 g/dl (1.3-3.2) Albumin/Globulin Ratio 0.96 Abdomen soft, fundus firm Perineum intact Extremities nontender Assessment and plan Patient stable and doing well Continue with routine care MAGNO CANO MD January 29, 2019 15:50
[2019-01-29 16:00] VITALS: BP 102/60; PULSE 86; RESP 18
[2019-01-29 20:00] VITALS: BP 127/76; PULSE 71; RESP 16
[2019-01-30 04:00] VITALS: BP 122/75; PULSE 73; RESP 18
[2019-01-30 08:45] VITALS: BP 128/70; PULSE 67; RESP 18
[2019-01-30] MEDS ORDERED: DIPHTH/TET/ACEL PERTUSS (ADULT) 0.5 ML VIAL IM* ONE (09:00)
[2019-01-30] MEDS: SENNA/DOCUSATE NA (8.6MG/50MG) TAB PO SCH (09:00)
[2019-01-30] MEDS: HYDROCODONE/APAP (5/325) TAB PO PRN (09:34)
--- NOTE | 2019-01-30 11:37 | QN ---
Documentation Comment PPD#2 is stable afebrile tolerates diet No Vb +BM +VOIDs BP WNL VS stable Gen NAD Abd soft NT ND Genitalia No blood at perineum --->Discharge home with precautions --->F/u with her provider --->Questions answered Precautions discussed TR FRITZ M.D. January 30, 2019 11:37
--- NOTE | 2019-01-30 11:38 | DS ---
Date/Time of Note Date/Time of Note DATE: 01/30/19 TIME: 11:37 Discharge Summary Admission/Discharge Info Admit Date/Time January 28, 2019 at 05:18 Discharge Date/Time 01/30/2019 Discharge Diagnosis Patient Condition: Good Hospital Course uneventful Home Meds Reported Medications Vits W-Ca,Fe,Fa(<1MG) () 1 Tab Tablet, 1 TAB PO DAILY 06/22/12 Discontinued Reported Medications Cephalexin* (Cephalexin* Susp) 250 Mg/5 Ml Susp.recon, 500 MG PO Q6, #1 BOTTLE 01/19/19 Ferrous Sulfate (Iron) 134 Mg Tablet, 134 MG PO DAILY, TAB 01/18/19 Calcium Carbonate* (Calcium Carbonate*) 600 MG Ca Tab, 600 MG PO DAILY, TAB 01/18/19 [facility] January 30, 2019 11:38
--- NOTE | 2019-01-31 16:33 | DELSUM ---
Delivery Summary A-C Datetime Report Generated by CPN: 01/31/2019 16:32 DELIVERY PERSONNEL Shooter'S Helper: Alba, Vira MATERNAL INFORMATION Delivery Anesthesia: Epidural Medications in Delivery: OXYTOCIN 30 UNITS Delivery QBL (ml): 235 Placenta Cultured: No Maternal Complications: None LABOR SUMMARY EDC: 02/17/2019 00:00 No. Babies in Womb: 1 Attempted: No Labor Anesthesia: None LABOR INFORMATION Reason for Induction: Not Applicable Reason for Induction- Other: PT CAME IN LABOR Complete Dilatation: 01/28/2019 18:20 Cervical Ripening Agents: Cytotec @ Oxytocin: N/A Group B Beta Strep: Negative Antibiotics # of Doses: N/A Steroids Given: Full Course; >24Hs before Delivery Reason Steroids Not Administered: Indication MEMBRANES Membranes Rupture Method: Artificial Rupture of Membranes: 01/28/2019 15:59 Length of Rupture (hr): 2.55 Amniotic Fluid Color: Clear Amniotic Fluid Amount: Moderate Amniotic Fluid Odor: None STAGES OF LABOR Stage 2 hr: 0 Stage 2 min: 12 Stage 3 hr: 0 Stage 3 min: 5 VAGINAL DELIVERY Initial Vag Sponge Count: 10 Final Vag Sponge Count: 10 Initial Vag Sharps Count: 1 Final Vag Sharps Count: 1 Sponge Count Correct: Yes; Vaginal Sweep Performed Sharps Count Correct: Yes BABY A INFORMATION Delivery Date/Time: 01/28/2019 18:32 Method of Delivery: Vaginal Born in Route : No : N/A Forceps: N/A Vacuum Extraction: N/A Shoulder Dystocia : N/A SHOULDER DYSTOCIA BABY A Delivery Date/Time: 01/28/2019 18:32 PRESENTATION/POSITION BABY A Presentation: Cephalic Cephalic Presentation: Vertex Vertex Position: Left Occipital Posterior Breech Presentation: N/A PLACENTA INFORMATION BABY A Placenta Delivery Time : 01/28/2019 18:37 Placenta Method of Delivery: Spontaneous Placenta Status: Delivered SCORES BABY A Heart Rate 1 min: >100 bpm Resp Effort 1 min: Good Cry Reflex Irritability 1 min: Cough/Sneeze/Pulls Away Muscle Tone 1 min: Active Motion Color 1 min: Body Harrells, Extremit Blue Resuscitation Effort 1 min: Tactile Stimulation SCORE 1 MIN: 9 Heart Rate 5 min: >100 bpm Resp Effort 5 min: Good Cry Reflex Irritability 5 min: Cough/Sneeze/Pulls Away Muscle Tone 5 min: Active Motion Color 5 min: Body Harrells, Extremit Blue Resuscitation Effort 5 min: Tactile Stimulation SCORE 5 MIN: 9 INFORMATION BABY A Gestational Age at Delivery: 37.1 Gestational Status: Early Term- 37- 38.6 Weeks Infant Outcome : Liveborn Infant Condition : Stable Sex: Female IDENTIFICATION/MEDS BABY A ID Band Number: [id number] ID Band Location: Right Leg; Left Arm Sensor Applied: Yes Sensor Number: [id number] Sensor Location : Cord Clamp Vitamin K Given : Not Given Erythromycin Given: Not Given WEIGHT/LENGTH BABY A Infant Birthweight (gm): 3325 Infant Weight (lb): 7 Weight (oz): 5 Infant Length (in): 19.00 Infant Length (cm): 48.26 CORD INFORMATION BABY A No. Cord Vessels: 3 Nuchal Cord : N/A Cord Blood Taken: Yes Infant Suction: Mouth; Nose ASSESSMENT BABY A Infant Complications: None Physical Findings at Delivery: Skin Tags; Within Normal Limits Physical Findings- Other: SKIN TAGS ON RIGHT SIDE OF FACE Respirations: Appears Normal Glass Science Engineer/ALS Called : No Infant Care By: GABO CALDERON RN Transferred To: Remains with Mother
== END 2019-01-30 16:32 | disposition home or self-care (01) | DRG 807 ==
LOC: OBT 23:27 → L-D 23:28 → OBT 01-28 05:18 → PP1 01-28 20:55
PROVIDERS: ADMIT Obstetrics & Gynecology; ATTEND Obstetrics & Gynecology
PROC: 10E0XZZ Delivery of Products of Conception, External Approach (ICD-10-PCS; principal; 2019-01-28)
DX: O80 Encounter for full-term uncomplicated delivery (principal); Z37.0 Single live birth; Z3A.37 37 weeks gestation of pregnancy
CPT/HCPCS: 76705; 76815; 76818; 80053; 81001; 84560; 85025; 85610; 85730; 86592; 86850; 86900; 86901; 87086; 87340; J0696; J2590; J3010; J7030; J7120